=== PATIENT | female | born 2000 | race Caucasian/White ===

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

== ENCOUNTER 2018-03-21 18:10 | Emergency (ER) | payer BC ==
[~2018-03-21] VITALS: Ht 180.3 cm; Wt 104.5 kg
[~2018-03-21 18:10] MED LIST changes: +SYNTHROID 0.0.025 MG PO
[2018-03-21 18:14] VITALS: BP 168/74; PULSE 107; TEMP 98.6
[2018-03-21] MEDS ORDERED: TRIAMCINOLONE A15 G2 TP (18:48)
== END 2018-03-21 19:10 | disposition home or self-care (01) ==
LOC: COL.ER 18:10
DX: S30.861A Insect bite (nonvenomous) of abdominal wall, initial encounter (principal); E03.9 Hypothyroidism, unspecified; Z88.2 Allergy status to sulfonamides; Z96.22 Myringotomy tube(s) status; Z90.89 Acquired absence of other organs; W57.XXXA Bitten or stung by nonvenomous insect and other nonvenomous arthropods, initial encounter
CPT/HCPCS: J8540